=== PATIENT | male | born 1960 ===

== ENCOUNTER 2023-08-20 11:05 | Emergency (ER) | payer OTHER, SELFPAY ==
[2023-08-20] VITALS (8 sets, daily range): BP systolic 130–161; BP diastolic 74–82; PULSE 69–92; RESP 16–25; TEMP 36.4; O2SAT 95–97; BMI 36.9
--- NOTE | 2023-08-20 11:37 | ED.ABDPAIN ---
HPI - Abdominal Pain General Chief Complaint: Abdominal Pain Stated Complaint: abd issues sent by hospital for special care Time Seen by Provider: 08/20/23 11:32 Source: patient Mode of arrival: Ambulatory History of Present Illness HPI narrative: Patient here for generalized periumbilical abdominal discomfort achy dull that waxes and wanes. Currently no abdominal pain. Sent here from walk-in clinic. Has history appendectomy cholecystectomy and diverticulosis. History of colonoscopy. No history of diverticulitis. No fever chills. No nausea vomiting diarrhea. No black or bloody stools. No urinary complaints. Has tried antacids without relief. Denies any back pain or chest pain Related Data Allergies Allergy/AdvReac Type Severity Reaction Status Date / Time No Known Drug Allergies Allergy Verified 08/20/23 11:40 Review of Systems Review of Systems Narrative: GENERAL: negative chills, fatigue, malaise, fever, sweats. HEENT: negative sinus pain, ear pain, sore throat RESPIRATORY: negative dyspnea, cough CARDIOVASCULAR: negative chest pain, palpitations GASTROINTESTINAL: negative nausea, vomiting, positive abdominal pain : negative dysuria, frequency, hematuria MUSCULOSKELETAL: negative muscle or bony pain SKIN: negative rash, skin lesions NEUROLOGIC: negative weakness, numbness ROS Unobtainable: All systems reviewed & are unremarkable except as noted in HPI and below Patient History Social History Smoking Status: Never smoker Smoking Status: Never smoker alcohol intake frequency: 0-2 drinks per day Substance Use Type: does not use Exam Narrative Exam Narrative: GENERAL: in no distress, not toxic not dyspneic HEAD: Normocephalic. EYES: Pupils equal round ENT: Mucous membranes moist. NECK: Trachea midline. CARDIOVASCULAR: Regular rate and rhythm RESPIRATORY: Clear to auscultation. Breath sounds equal bilaterally. No wheezes, rales, or rhonchi. GASTROINTESTINAL: Abdomen soft, non-tender, no peritoneal signs, no CVA tenderness. No pain out of portion exam. Bowel sounds are present. EXTREMITIES: No gross deformities. BACK: No flank tenderness. NEURO: AOx4. SKIN: Warm and dry PSYCH: Not anxious, is cooperative Initial Vital Signs Initial Vital Signs: Vital Signs Pulse Rate 92 H 08/20/23 11:13 Pulse Oximetry 95 08/20/23 11:13 Course Orders Ordered: ED Orders 08/20/23 11:26 Complete Blood Count AUTO DIFF Stat Comprehensive Metabolic Panel Stat Lipase Stat 08/20/23 11:37 CT abdomen pelvis w con Stat Discontinued Medications Sodium Chloride (Normal Saline 0.9%) 1,000 mls @ 1,000 mls/hr IV BOLUS ONE Stop: 08/20/23 12:35 Last Infusion: 08/20/23 13:13 Dose: Infused Documented By: Admin: 08/20/23 11:53 Dose: 1,000 mls/hr Documented By: ROHITH Vital Signs Vital signs: Vital Signs - 8 hr 08/20/23 11:13 08/20/23 11:14 08/20/23 11:14 Temperature Pulse Rate 92 H 89 Respiratory Rate Blood Pressure 161/81 H Pulse Oximetry 95 96 Oxygen Delivery Method 08/20/23 11:29 08/20/23 11:30 08/20/23 11:30 Temperature 97.6 F Pulse Rate 81 77 Respiratory Rate 20 16 Blood Pressure 161/81 H 140/82 Pulse Oximetry 97 95 Oxygen Delivery Method Room Air 08/20/23 11:49 08/20/23 11:49 08/20/23 12:00 Temperature Pulse Rate 83 Respiratory Rate 24 Blood Pressure 150/81 H 130/74 Pulse Oximetry 97 Oxygen Delivery Method 08/20/23 12:00 08/20/23 12:30 08/20/23 12:30 Temperature Pulse Rate 74 72 Respiratory Rate 25 H 20 Blood Pressure 158/79 H Pulse Oximetry 95 97 Oxygen Delivery Method 08/20/23 13:00 08/20/23 13:00 Temperature Pulse Rate 69 Respiratory Rate 20 Blood Pressure 133/74 Pulse Oximetry 96 Oxygen Delivery Method MDM - Abdominal Pain Lab Data 08/20/23 11:26 08/20/23 11:26 Labs: Lab Results 08/20/23 Range/Units 11:26 WBC 5.6 (4.5-11.0) X10^3/uL RBC 4.84 (4.5-5.9) X10^6/uL Hgb 14.6 (13.5-17.5) g/dL Hct 43.5 (41-53) % MCV 89.9 (80-100) fL MCH 30.2 (26-34) PG MCHC 33.6 (30-36) % RDW 13.1 (11.6-14.8) % Plt Count 220 (150-400) X10^3/uL Neut % (Auto) 54.9 (50-75) % Lymph % (Auto) 32.7 (25-40) % Sabine % (Auto) 8.2 (3-14) % Eos % (Auto) 3.8 (2-4) % Baso % (Auto) 0.4 (0-2) % Neut # (Auto) 3100 (1863-9835) /uL Lymph # (Auto) 1800 (6650-2509) /uL Sabine # (Auto) 500 (0-900) /uL Eos # (Auto) 200 (0-450) /uL Baso # (Auto) 0 (0-100) /uL Sodium 139 (137-145) mmol/L Potassium 4.0 (3.4-5.1) mmol/L Chloride 104 (98-107) mmol/L Carbon Dioxide 33 H (22-32) mmol/L BUN 17 (9-20) mg/dL Creatinine 1.05 (0.66-1.25) mg/dL Estimated GFR > 60 (>60) mL/min BUN/Creatinine Ratio 16.2 (6-22) Glucose 91 (80-110) mg/dL Calcium 9.0 (8.4-10.2) mg/dL Total Bilirubin 0.5 (0.2-1.3) mg/dL AST 28 (17-59) IU/L ALT 28 (<50) IU/L Alkaline Phosphatase 57 (38-126) U/L Total Protein 6.9 (6.3-8.2) g/dL Albumin 4.5 (3.5-5.0) g/dL Globulin 2.4 (1.7-4.1) g/dL Albumin/Globulin Ratio 1.9 (1.0-2.8) Lipase 81 (23-300) U/L Imaging Data CT scan - abdomen/pelvis: Radiologist's Impression: [address] [address] [address] Scan Report Signed Patient: Ab Reina MR#: [id number] : 1960 Acct:[id number] Age/Sex: 63 / M Date of Service: 08/20/23 Loc: ED Accession Number: [id number] Procedure: CT abdomen pelvis w con Ordering Provider: Barry Haider MD PROCEDURE: CT ABDOMEN PELVIS W CON INDICATIONS: IV contrast only/generalized abdominal pain TECHNIQUE: After the administration of intravenous contrast, axial sections acquired from the lung bases to the pubic symphysis. Coronal and sagittal reformats were performed. For radiation dose reduction, the following was used: automated exposure control, adjustment of mA and/or kV according to patient size. COMPARISON: None. FINDINGS: Image quality: Diagnostic. Lower Chest: A circumscribed 1.8 cm mass is present within the right lung base. The lung bases are otherwise clear. Heart is normal size. ABDOMEN: Liver: No solid mass. Gallbladder: Surgically absent. Biliary ducts: No biliary dilation. Pancreas: No ductal dilation. Spleen: Size is within normal limits. Adrenal Glands: No adrenal nodules. Kidneys and Ureters: No hydronephrosis. No solid mass. No complex renal cystic lesion which requires follow up. A low-density cystic lesion is present in the lower pole of the left kidney. Stomach and Bowel: Normal colonic caliber, without significant wall thickening. The appendix is not visualized and may be surgically absent. There are scattered sigmoid diverticula. No evidence for diverticulitis. Peritoneum: No abnormal intraperitoneal fluid. No free air. Fat stranding is present at the mesenteric root. Ventral Wall: There is a small fat containing paraumbilical hernia. Abdominal Nodes: No retroperitoneal or mesenteric adenopathy by size criteria. Vessels: Aorta and inferior vena cava are normal in size. PELVIS: Pelvic Organs: Unremarkable. Bladder: No bladder wall thickening, accounting for underdistention. Pelvic Nodes: No enlarged lymph nodes. Miscellaneous: There are small bilateral fat containing inguinal hernias. Bones: No aggressive osseous abnormality. IMPRESSION: 1. No acute intra-abdominal findings. Diverticulosis. No acute diverticulitis. 2. Fat stranding at the mesenteric root. This is a nonspecific finding but can be associated with mesenteric panniculitis or hematologic neoplasms. Of note, there is no pathologic mesenteric or retroperitoneal adenopathy. 3. Right basilar pulmonary nodule. No prior studies are available for comparison. Dedicated CT of the chest with contrast is recommended to further characterize this finding and evaluate for other pulmonary lesions. Dictated by: Trudi Gil M.D. on 08/20/2023 at 12:32 Approved by: Trudi Gil M.D. on 08/20/2023 at 12:40 [facility] Narrative Medical decision making narrative: Patient here for generalized periumbilical abdominal discomfort achy dull that waxes and wanes. Currently no abdominal pain. Sent here from walk-in clinic. Has history appendectomy cholecystectomy and diverticulosis. History of colonoscopy. No history of diverticulitis. No fever chills. No nausea vomiting diarrhea. No black or bloody stools. No urinary complaints. Has tried antacids without relief. Denies any back pain or chest pain After history and exam CBC CMP lipase CT abdomen pelvis normal saline [facility] Medical records reviewed: No recent visit for this complaint Differential considered: Includes but not limited to diverticulitis bowel obstruction colitis choledocholithiasis Lab Test results independently reviewed as above. Pertinent findings: WBC 5.6 hemoglobin 14.6 sodium 139 potassium 4.0 GFR greater than 60 AST 28 ALT 28 Imaging studies independently reviewed: CT abdomen pelvis no acute finding Consultations: None indicated Treatments: Normal saline Re-evaluations: Patient resting comfortably at time of discharge. Reviewed results with patient and imaging results. Needs outpatient follow up, he does have a family doctor, for repeat CT imaging or MRI of the abdomen to compare to today's findings. No antibiotics or surgical intervention indicated at this time. Return precautions reviewed. He desires discharge home. Discussion: Appropriate for discharge home. Exam and laboratory studies and imaging studies are reassuring. He does have a family doctor to follow up with. General surgery referral provided for follow up. Nontoxic at discharge. No prescriptions are indicated. Not toxic at discharge. He desires discharge home Diagnosis: Abdominal pain Discharge Plan Departure Patient Disposition: Home Clinical Impression: Abdominal pain Qualifiers: Abdominal location: periumbilical Qualified Code(s): R10.33 - Periumbilical pain Instructions: DI for Abdominal Pain-Adult Activity Restrictions/Additional Instructions: Please see your family doctor within a week for re-evaluation and to schedule an outpatient CT scan imaging or MRI of your abdomen to compare to today's CT scan. Please call provided general surgery office today for re-evaluation of your abdominal pain. At this time laboratory studies and CT scan imaging is reassuring. However, return if worse if any questions or concerns. Referrals: Sree Hammond MD [Physician] - Stand Alone Forms: Patient Portal/API
[2023-08-20 11:44] LABS: Add Manual Diff / Slide Review NO; Basophils Absolute Auto 0 /uL (0-100); Basophils Percent Auto 0.4 % (0-2); Eosinophils Absolute Auto 200 /uL (0-450); Eosinophils Percent Auto 3.8 % (2-4); Hematocrit 43.5 % (41-53); Hemoglobin 14.6 g/dL (13.5-17.5); Lymphocytes Absolute Auto 1800 /uL (1100-4500); Lymphocytes Percent Auto 32.7 % (25-40); Mean Corpuscular HGB Conc 33.6 % (30-36); Mean Corpuscular Hemoglobin 30.2 PG (26-34); Mean Corpuscular Volume 89.9 fL (80-100); Monocytes Absolute Auto 500 /uL (0-900); Monocytes Percent Auto 8.2 % (3-14); Neutrophils Absolute Auto 3100 /uL (1500-7000); Neutrophils Percent Auto 54.9 % (50-75); Platelet Count 220 X10^3/uL (150-400); Red Blood Cell Count 4.84 X10^6/uL (4.5-5.9); Red Cell Distribution Width 13.1 % (11.6-14.8); White Blood Cell Count 5.6 X10^3/uL (4.5-11.0)
[2023-08-20 11:52] LABS: Alanine Aminotransferase 28 IU/L (<50); Albumin 4.5 g/dL (3.5-5.0); Albumin Globulin Ratio 1.9 (1.0-2.8); Alkaline Phosphatase 57 U/L (38-126); Aspartate Aminotransferase 28 IU/L (17-59); BUN Creatinine Ratio 16.2 (6-22); Bilirubin Total 0.5 mg/dL (0.2-1.3); Blood Urea Nitrogen 17 mg/dL (9-20); Carbon Dioxide 33 mmol/L (22-32); Chloride 104 mmol/L (98-107); Estimated Glomerular Filt Rate > 60 mL/min (>60); Globulin 2.4 g/dL (1.7-4.1); Glucose 91 mg/dL (80-110); HEMOLYSIS < 15 (0-50); Lipase 81 U/L (23-300); Sodium 139 mmol/L (137-145); Total Protein 6.9 g/dL (6.3-8.2)
[2023-08-20] MEDS: SODIUM CHLORIDE 0.9% 1,000 ML 1000 ML IV (11:53)
== END 2023-08-20 13:31 | disposition home or self-care (01) ==
PROVIDERS: Emergency Provider Emergency Medicine
DX: R10.33 Periumbilical pain (principal)
CPT/HCPCS: 36415; 74177; 80053; 83690; 85025; 96360; 99284; Q9967